=== PATIENT | male | born 1940 | race Caucasian/White ===

== ENCOUNTER 2016-11-27 08:17 | Emergency (ER) | payer MEDICARE ==
--- NOTE | 2016-11-27 08:38 | Emergency Department Record ---
History of Present Illness - General Chief Complaint: Palpitations Stated Complaint: MUSCLE SPASMS IN CHEST Time Seen by Provider: 11/27/16 08:32 Source: Patient Mode of Arrival: Ambulatory Limitations: No limitations - History of Present Illness Initial Comments: 76 yo male presents to ED for evaluation of intermittent cramps to the left chest that began yesterday while at rest. Patient reports that activity does not worsen his symptoms. Patient denies previous heart problems, and reports recent stress test 2 years ago. Patient denies pain with deep breathing, denies fevers, chills, or cough symptoms. Patient denies calf pain or swelling. Patient is pain-free currently. Onset/Timin -: Days(s) Context: Occurred during rest Associated Symptoms: Denies other symptoms, Chest pain - Related Data Home Medications Medication Instructions Recorded Confirmed Last Taken Ferrous Gluconate [Iron] 240 mg PO DAILY 02/03/14 11/27/16 Unknown Niacin [Niacin ER] 750 mg PO DAILY 02/03/14 11/27/16 Unknown Omeprazole [Prilosec] 20 mg PO DAILY 02/03/14 11/27/16 Unknown Ubidecarenone [Coq-10] 100 mg PO DAILY 02/03/14 11/27/16 Unknown Acetaminophen [Tylenol 325Mg] 650 mg PO ASDIR 11/27/16 11/27/16 Unknown Aspirin 325 mg PO DAILY 11/27/16 11/27/16 11/27/16 Celecoxib [Celebrex] 200 mg PO DAILY 11/27/16 11/27/16 Unknown Cholecalciferol (Vitamin D3) 2,000 unit PO DAILY 11/27/16 11/27/16 Unknown [Vitamin D3] Metoprolol Tartrate [Metoprolol 25 mg PO DAILY 11/27/16 11/27/16 Unknown Tartrate] Multivitamin [Multi-Vitamin Daily] 1 each PO DAILY 11/27/16 11/27/16 Unknown Tamsulosin HCl [Flomax] 0.4 mg PO DAILY 11/27/16 11/27/16 Unknown Previous Rx's Medication Instructions Recorded Diazepam [Valium] 5 mg PO Q8H PRN #10 tab 11/27/16 Allergies Allergy/AdvReac Type Severity Reaction Status Date / Time No Known Drug Allergies Allergy Unknown Verified 11/27/16 08:24 [NO KNOWN DRUG ALLERGIES] Travel Screening - Travel/Exposure Within Last 30 Days Have you traveled within the last 30 days?: No Review of Systems Constitutional: Denies: Chills, Fever, Malaise, Night sweats Eyes: Denies: Eye discharge, Eye pain ENT: Denies: Congestion, Ear pain, Epistaxis Respiratory: Denies: Cough, Dyspnea Cardiovascular: Reports: Chest pain. Denies: Dyspnea on exertion Endocrine: Denies: Fatigue, Heat or cold intolerance Gastrointestinal: Denies: Abdominal pain, Nausea, Vomiting Musculoskeletal: Denies: Arthralgia, Back pain, Gout, Joint swelling Skin: Denies: Bruising Neurological: Denies: Abnormal gait, Confusion, Headache Psychiatric: Denies: Anxiety Hematological/Lymphatic: Denies: Anemia, Blood Clots Past Medical History - SOCIAL HISTORY Smoking Status: Never smoker Alcohol Use: Rare Drug Use: None - RESPIRATORY Hx Respiratory Disorders: No - CARDIOVASCULAR Hx Cardio Disorders: Yes Hx Hypertension: Yes Comment:: enlarged aorta - NEURO Hx Neuro Disorders: No - GI Hx GI Disorders: Yes Hx Abdominal Pain: Yes Hx Reflux: Yes Hx of Polyps: Yes - Hx Genitourinary Disorders: Yes Hx Kidney Stones: Yes Hx Prostate Problems: Yes - ENDOCRINE Hx Endocrine Disorders: No - MUSCULOSKELETAL Hx Musculoskeletal Disorders: Yes Hx Arthritis: Yes - PSYCH Hx Psych Problems: No - HEMATOLOGY/ONCOLOGY Hx Hematology/Oncology Disorders: Yes Hx Blood Disorders: Yes Family Medical History Any Significant Family History?: Yes Hx Cancer: Father, Mother Physical Exam - General General Appearance: Alert, Oriented x3, Cooperative Limitations: No limitations - Head Head exam: Atraumatic, Normocephalic, Normal inspection Head exam detail: negative: Abrasion, Contusion, Holman's sign, General tenderness, Hematoma, Laceration - Eye Eye exam: Normal appearance. negative: Conjunctival injection, Periorbital swelling, Periorbital tenderness, Scleral icterus - ENT Ear exam: negative: Auricular hematoma, Auricular trauma Nasal Exam: negative: Active bleeding, Discharge, Dried blood, Foreign body Mouth exam: negative: Drooling, Laceration, Tongue elevation - Neck Neck exam: Normal inspection. negative: Meningismus, Tenderness - Respiratory Respiratory exam: Normal lung sounds bilaterally. negative: Respiratory distress, Rhonchi, Stridor, Wheezes - Cardiovascular Cardiovascular Exam: Normal rhythm, Normal heart sounds, Bradycardia - GI/Abdominal GI/Abdominal exam: Soft. negative: Rebound, Rigid, Tenderness - Rectal Rectal exam: Deferred - exam: Deferred - Extremities Extremities exam: Normal inspection. negative: Calf tenderness, Pedal edema, Tenderness - Back Back exam: Denies: CVA tenderness (R), CVA tenderness (L) - Neurological Neurological exam: Alert, Normal gait, Oriented X3 - Psychiatric Psychiatric exam: Normal affect, Normal mood - Skin Skin exam: Normal color. negative: Abrasion Type of lesion: negative: abrasion Course Vital Signs 11/27/16 08:20 Pulse Rate 51 L Respiratory 18 Rate Blood Pressure 153/93 Pulse Ox 97 - Reevaluation(s) Reevaluation #1: 11/27/16 08:32 EKG: Sinus Bradycardia 50 Normal [place], IVCD T wave inversions III Reevaluation #2: 11/27/16 08:40 Negative exercise stress test to 11 mets 01/14/15 Reevaluation #3: 11/27/16 09:28 Labs reviewed and are grossly unremarkable for an acute process. CXR: No acute process Patient was updated on all results, reports (1) episode of pain symptoms while in radiology lasting approximately 5 seconds. Will consult with [facility] provider and obtain 2nd set in 3 hours. Reevaluation #4: 11/27/16 09:46 Case was discussed with Dr. Wilhelm, agrees with plan for second Troponin and outpatient stress testing tomorrow in the [facility]. Reevaluation #5: 11/27/16 13:11 Repeat Troponin is negative for myocardial damage, and the patient appears stable for discharge at this time with instructions to return for stress testing tomorrow morning. Medical Decision Making - Lab Data Result diagrams: 11/27/16 08:40 11/27/16 08:40 Disposition Disposition: Discharge Clinical Impression: Atypical chest pain Disposition: Home, Self-Care Condition: (2) Stable Instructions: Chest Pain (ED) Additional Instructions: Return to ED if your symptoms worsen or if you have any concerns. Return tomorrow for cardiac stress testing tomorrow as directed. Prescriptions: Diazepam [Valium] 5 mg PO Q8H PRN #10 tab PRN Reason: Pain - Moderate (5-7) Forms: Patient Portal Access Time of Disposition: 13:12
[2016-11-27] MEDS ORDERED: ASPIRIN 81 MG CHEWABLE TABLET PO ONE (08:41)
[2016-11-27 09:00] LABS: BASO % 0.3 % (0-6); EOS % 2.3 % (0-6); GRAN % 69.3 % (47-80); HEMATOCRIT 41.5 % (42.0-52.0); HEMOGLOBIN 13.9 gm/dl (14.0-18.0); LYMPH % 18.6 % (16-45); MEAN CORPUSCULAR HGB CONC 33.5 g/dl (32-36); MONO % 9.5 % (0-9); PLATELET COUNT 270 K/uL (130-400); RED BLOOD COUNT 4.56 M/uL (4.40-5.70); RED CELL DISTRIBUTION WIDTH 15.7 % (11.5-14.5); WHITE BLOOD COUNT W/O DIFF 6.5 K/uL (4.2-12.2)
[2016-11-27 09:01] LABS: MEAN CORPUSCULAR HEMOGLOBIN 30.4 pg (27-33)
[2016-11-27 09:07] LABS: ALB/GLOB RATIO 1.4 (1.1-1.8); ALBUMIN 3.7 gm/dL (3.5-5.0); ALKALINE PHOSPHATASE 71 U/L (38-126); ALT/SGPT 23 U/L (21-72); ANION GAP 6.5 (7-16); AST/SGOT 22 U/L (17-59); BILIRUBIN,TOTAL 0.66 mg/dL (0.2-1.3); BLOOD UREA NITROGEN 10 mg/dL (9-20); CARBON DIOXIDE 29.5 mmol/L (22-30); CREATINE PHOSPHOKINASE 43 U/L (55-170); CREATININE 0.8 mg/dL (0.66-1.25); EST GLOMERULAR FILTRATION RATE > 60 ml/min; GLUCOSE,RANDOM 97 mg/dL (70-110); TOTAL PROTEIN 6.3 gm/dL (6.3-8.2)
[2016-11-27 09:21] LABS: CKMB 1.2 ug/L (0-6); TROPONIN I < 0.012 ng/mL (0.00-0.034)
[2016-11-27] MEDS ORDERED: DIAZEPAM 5 MG TABLET PO ONE (09:49)
--- NOTE | 2016-11-27 15:33 | RADIOLOGY REPORT ---
EXAM: CHEST 2 VIEWS HISTORY: CHEST PAIN FOR TWO DAYS. TECHNIQUE: Upright PA and lateral views of the chest. COMPARISON: Two-view chest radiographic examination dated 02/24/2013. FINDINGS: The heart is not enlarged and the pulmonary vasculature is nondilated. The lungs and pleural spaces remain clear. The thoracic aorta is tortuous and atherosclerotic. On a prior CTA examination, the ascending thoracic aorta is noted to be mildly ectatic. IMPRESSION: NO EVIDENCE OF ACUTE CARDIOPULMONARY DISEASE. TORTUOUS ATHEROSCLEROTIC THORACIC AORTA. ON A PRIOR CTA EXAMINATION OF THE CHEST, ECTASIA OF THE ASCENDING THORACIC AORTA IS NOTED. JOB NUMBER: [id number] MTDD
== END 2016-11-27 13:30 | disposition home or self-care (01) ==
LOC: ER 08:17
DX: R07.89 Other chest pain (principal); I10 Essential (primary) hypertension
CPT/HCPCS: 99284 ×2; 82550; 85025; 82553; 84484; 80053; 71020; 93005; 93010; J3490

== ENCOUNTER 2017-03-09 02:08 | Observation (INO) | payer MEDICARE ==
[2017-03-09] MEDS ORDERED: ACETAMINOPHEN 500 MG TABLET PO ONE (02:16)
[2017-03-09] MEDS ORDERED: ONDANSETRON HCL IV 4 MG/2 ML VIAL IVP ONE (02:23)
--- NOTE | 2017-03-09 02:27 | Emergency Department Record ---
History of Present Illness - General Chief complaint: Vomiting Stated complaint: FEVER Time Seen by Provider: 03/09/17 02:10 Source: Patient Mode of Arrival: Ambulatory Limitations: No limitations - History of Present Illness Initial comments: 76 yo male presents to ED for evaluation of fever and vomiting symptoms for the past 24 hours intermittently. Patient reports that his symptoms began 12 hours after receiving the influenza vaccine. Patient reports body aches and loose stools, denies abdominal pain, cough, or urinary symptoms. Patient denies any recent rashes. Patient reports attempting to take Tylenol earlier tonight however it "came back up on him". MD complaint: Nausea, Vomiting, Other (fever) Onset/Timin -: Days(s) Associated Abdominal Pain: No Severity: Moderate Associated Symptoms: Fever/chills - Related Data Allergies Allergy/AdvReac Type Severity Reaction Status Date / Time No Known Drug Allergies Allergy Unknown Verified 11/27/16 08:24 [NO KNOWN DRUG ALLERGIES] Travel Screening - Travel/Exposure Within Last 30 Days Have you traveled within the last 30 days?: No - Travel Symptoms Symptom Screening: None Review of Systems Constitutional: Reports: Chills, Fever, Malaise. Denies: Night sweats Eyes: Denies: Eye discharge, Eye pain ENT: Denies: Congestion, Ear pain, Epistaxis Respiratory: Denies: Cough, Dyspnea Cardiovascular: Denies: Chest pain, Dyspnea on exertion Endocrine: Denies: Fatigue, Heat or cold intolerance Gastrointestinal: Reports: Diarrhea, Nausea, Vomiting. Denies: Abdominal pain, Constipation Genitourinary: Denies: Incontinence, Retention Musculoskeletal: Reports: Myalgia. Denies: Arthralgia, Back pain, Gout, Joint swelling Skin: Denies: Bruising, Change in color Neurological: Denies: Abnormal gait, Confusion, Headache, Seizure Psychiatric: Denies: Anxiety Hematological/Lymphatic: Denies: Anemia, Blood Clots Past Medical History - SOCIAL HISTORY Smoking Status: Never smoker - RESPIRATORY Hx Respiratory Disorders: No - CARDIOVASCULAR Hx Cardio Disorders: Yes Hx Hypertension: Yes Comment:: enlarged aorta - NEURO Hx Neuro Disorders: No - GI Hx GI Disorders: Yes Hx Abdominal Pain: Yes Hx Reflux: Yes Hx of Polyps: Yes - Hx Genitourinary Disorders: Yes Hx Kidney Stones: Yes Hx Prostate Problems: Yes - ENDOCRINE Hx Endocrine Disorders: No - MUSCULOSKELETAL Hx Musculoskeletal Disorders: Yes Hx Arthritis: Yes - PSYCH Hx Psych Problems: No - HEMATOLOGY/ONCOLOGY Hx Hematology/Oncology Disorders: Yes Hx Blood Disorders: Yes Family Medical History Any Significant Family History?: Yes Hx Cancer: Father, Mother Physical Exam - General General Appearance: Alert, Oriented x3, Cooperative, Mild distress Limitations: No limitations - Head Head exam: Atraumatic, Normocephalic, Normal inspection Head exam detail: negative: Abrasion, Contusion, Holman's sign, General tenderness, Hematoma, Laceration - Eye Eye exam: Normal appearance. negative: Conjunctival injection, Periorbital swelling, Periorbital tenderness, Scleral icterus - ENT Ear exam: negative: Auricular hematoma, Auricular trauma Nasal Exam: negative: Active bleeding, Discharge, Dried blood, Foreign body Mouth exam: negative: Drooling, Laceration, Muffled voice, Tongue elevation - Neck Neck exam: Normal inspection. negative: Meningismus, Tenderness - Respiratory Respiratory exam: Normal lung sounds bilaterally. negative: Rales, Respiratory distress, Rhonchi, Stridor - Cardiovascular Cardiovascular Exam: Regular rate, Normal rhythm, Normal heart sounds - GI/Abdominal GI/Abdominal exam: Soft, Other (benign abdominal examination). negative: Rebound, Rigid, Tenderness - Rectal Rectal exam: Deferred - exam: Deferred - Extremities Extremities exam: Other (Erythema/STS extending from the right elbow proximally) . negative: Calf tenderness, Pedal edema, Tenderness - Back Back exam: Denies: CVA tenderness (R), CVA tenderness (L) - Neurological Neurological exam: Alert, Normal gait, Oriented X3 - Psychiatric Psychiatric exam: Normal affect, Normal mood - Skin Skin exam: Erythema. negative: Abrasion Type of lesion: negative: abrasion Distribution of rash: RUE Description of rash: Erythematous, Macular Course - Reevaluation(s) Reevaluation #1: 03/09/17 03:08 Labs reviewed, WBC 15.9 with 88% neutrophils. Labs are otherwise grossly unremarkable for an acute process. UA and CXR are pending. Reevaluation #2: 03/09/17 03:25 UA negative for infection. CXR: No acute process Symptoms appear c/w cellulitis of the RUE, Clindamycin initiated in the ED. Will admit for further evaluation and treatment. Patient and his SO agree with plan as discussed. Medical Decision Making - Lab Data Result diagrams: 03/09/17 02:30 10/07/17 02:30 Disposition Disposition: Admit Clinical Impression: Cellulitis Qualifiers: Site of cellulitis: extremity Site of cellulitis of extremity: upper extremity Laterality: right Qualified Code(s): L03.113 - Cellulitis of right upper limb Fever Qualifiers: Fever type: unspecified Qualified Code(s): R50.9 - Fever, unspecified Disposition: Still a Patient at [facility] Decision to Admit: Admit from ER Decision to Admit Date: 03/09/17 Decision to Admit Time: : Condition: (2) Stable Forms: Patient Portal Access Time of Disposition: : Quality - Quality Measures Quality Measures: N/A - Blood Pressure Screening Does Patient Have Any of the Following: No Blood Pressure Classification: Pre-Hypertensive BP Reading Systolic Measurement: 123 Diastolic Measurement: 72 Screening for High Blood Pressure: < Pre-Hypertensive BP, F/U Documented > [ [id number]] Pre-Hypertensive Follow-up Interventions: Referral to alternative/primary care provider.
[2017-03-09] MEDS ORDERED: 0.9 % SODIUM CHLORIDE 1000ML 1,000 ML IV SCH (02:30)
[2017-03-09 02:39] LABS: BASO % 0.1 % (0-6); EOS % 0.1 % (0-6); HEMATOCRIT 42.5 % (42.0-52.0); HEMOGLOBIN 14.5 gm/dl (14.0-18.0); MEAN CELL VOLUME 88.7 fl (81-97); MEAN CORPUSCULAR HEMOGLOBIN 30.3 pg (27-33); MEAN CORPUSCULAR HGB CONC 34.1 g/dl (32-36); MEAN PLATELET VOLUME 9.2 fl (7.4-10.4); PLATELET COUNT 219 K/uL (130-400); RED BLOOD COUNT 4.79 M/uL (4.40-5.70); WHITE BLOOD COUNT W/O DIFF 15.9 K/uL (4.2-12.2)
[2017-03-09 02:56] LABS: ALB/GLOB RATIO 1.3 (1.1-1.8); ALBUMIN 3.8 g/dL (4.0-5.0); ALKALINE PHOSPHATASE 77 U/L (40-129); ALT/SGPT 13 U/L (<41); AST/SGOT 18 U/L (10.0-50.0); BLOOD UREA NITROGEN 10 mg/dL (8-23); CREATININE 0.8 mg/dL (0.7-1.2); EST GLOMERULAR FILTRATION RATE > 60 mL/min; GLUCOSE,RANDOM 164 mg/dL (74-109); INFLUENZA A NEGATIVE (NEGATIVE); INFLUENZA B NEGATIVE (NEGATIVE); TOTAL PROTEIN 6.7 g/dL (6.6-8.7)
[2017-03-09 03:05] LABS: ANISOCYTOSIS 1+; PLATELET ESTIMATE NORMAL (NORMAL)
[2017-03-09 03:19] LABS: URINE APPEARANCE CLEAR; URINE BILIRUBIN NEGATIVE (NEGATIVE); URINE BLOOD NEGATIVE (NEGATIVE); URINE COLOR YELLOW; URINE GLUCOSE (UA) NEGATIVE (NEGATIVE); URINE KETONE 15 mg/dL (NEGATIVE); URINE LEUKOCYTE ESTERASE NEGATIVE (NEGATIVE); URINE NITRITE NEGATIVE (NEGATIVE); URINE PROTEIN NEGATIVE (NEGATIVE); URINE UROBILINOGEN 0.2 E.U./dL (0.20 - 1.00)
[2017-03-09] MEDS ORDERED: CLINDAMYCIN 600MG/50ML PREMIX 600 MG/50 ML BAG IVPB ONE (03:32)
[2017-03-09] MEDS ORDERED: ACETAMINOPHEN 500 MG TABLET PO PRN (03:51)
[2017-03-09] MEDS ORDERED: 0.9 % SODIUM CHLORIDE 1000ML 1,000 ML IV PRN (03:51)
[2017-03-09] MEDS: CLINDAMYCIN 600MG/50ML PREMIX 600 MG/50 ML BAG IVPB SCH ×2 (04:28→11:34)
[2017-03-09] MEDS ORDERED: PANTOPRAZOLE SODIUM 40 MG TABLET PO SCH (07:00)
--- NOTE | 2017-03-09 09:58 | History & Physical ---
History of Present Illness - Date of Service Date of Service for History & Physical: 03/09/17 - History of Present Illness Admitting Diagnosis: Cellulitis right upper extremity. Fever. Sepsis History of Present Illness: Mr. Sellers is a 76 y/o male who presents with feve, nausea, vomiting and loose stools starting yesterday. The patient says that he got his flu vaccine the day before and several hours later symptoms began. He tried taking Tylenol but got no relief of symptoms. On arrival to the ED the patient was noted to have swelling of the right forearm. The patient cannot recall any injury, scratches or scrapes to the area. Initial workup revealed an elevated WBC negative UA and chest xray. The patient was started on Clindamycin 600mg IV Q8H and Nacl 0.9% @ 125mL/hr. Travel Screening - Travel/Exposure Within Last 30 Days Have you traveled within the last 30 days?: No - Travel/Exposure Within Last Year Have you traveled outside the [place] in the last year?: No - Additonal Travel Details Have you been exposed to anyone with a communicable illness?: No - Travel Symptoms Symptom Screening: None Review of Systems Constitutional: Reports: Chills, Fever, Malaise. Denies: Night sweats Eyes: Denies: Eye discharge, Eye pain ENT: Denies: Congestion, Ear pain, Epistaxis Respiratory: Denies: Cough, Dyspnea Cardiovascular: Denies: Chest pain, Dyspnea on exertion Endocrine: Denies: Fatigue, Heat or cold intolerance Gastrointestinal: Reports: Diarrhea, Nausea, Vomiting. Denies: Abdominal pain, Constipation Genitourinary: Denies: Incontinence, Retention Musculoskeletal: Reports: Myalgia. Denies: Arthralgia, Back pain, Gout, Joint swelling Skin: Denies: Bruising, Change in color Neurological: Denies: Abnormal gait, Confusion, Headache, Seizure Psychiatric: Denies: Anxiety Hematological/Lymphatic: Reports: Other (history of thrombocytosis ). Denies: Anemia, Blood Clots Past Medical History - SOCIAL HISTORY Smoking Status: Never smoker Alcohol Use: Occasional Drug Use: None - RESPIRATORY Hx Respiratory Disorders: No - CARDIOVASCULAR Hx Cardio Disorders: Yes Hx Hypertension: Yes Comment:: enlarged aorta - NEURO Hx Neuro Disorders: No - GI Hx GI Disorders: Yes Hx Abdominal Pain: Yes Hx Reflux: Yes Hx of Polyps: Yes - Hx Genitourinary Disorders: Yes Hx Kidney Stones: Yes Hx Prostate Problems: Yes - ENDOCRINE Hx Endocrine Disorders: No - MUSCULOSKELETAL Hx Musculoskeletal Disorders: Yes Hx Arthritis: Yes - PSYCH Hx Psych Problems: No - HEMATOLOGY/ONCOLOGY Hx Hematology/Oncology Disorders: Yes Hx Blood Disorders: Yes Family Medical History Any Significant Family History?: Yes Hx Cancer: Father, Mother H&P Meds/Allergies - Allergies Allergies: Allergies Allergy/AdvReac Type Severity Reaction Status Date / Time No Known Drug Allergies Allergy Unknown Verified 11/27/16 08:24 [NO KNOWN DRUG ALLERGIES] - Active Medications Active Medications: Current Medications Acetaminophen (Tylenol 500mg Tab) 1,000 mg PO Q6H PRN PRN Reason: PAIN/TEMP Last Admin: 03/09/17 09:32 Dose: 1,000 mg Aspirin (Aspirin, Regular) 325 mg PO DAILY ON LICENSE OF [facility] Last Admin: 03/09/17 09:32 Dose: 325 mg Celecoxib (Celebrex) 200 mg PO BID ON LICENSE OF [facility] Last Admin: 03/09/17 09:32 Dose: 200 mg Ferrous Sulfate (Iron) 325 mg PO DAILY ON LICENSE OF [facility] Last Admin: 03/09/17 09:32 Dose: 325 mg Sodium Chloride () 1,000 mls @ 125 mls/hr IV .Q8H PRN PRN Reason: LARGE VOLUME IV Last Admin: 03/09/17 04:35 Dose: 125 mls/hr Clindamycin Phosphate (Cleocin 600 [id number]) 600 mg in 50 mls @ 100 mls/ hr IVPB Q8H ON LICENSE OF [facility] Last Admin: 03/09/17 04:28 Dose: Not Given Metoprolol Tartrate (Lopressor) 25 mg PO BID ON LICENSE OF [facility] Last Admin: 03/09/17 09:33 Dose: 25 mg Non-Formulary Medication (Niacin [Niacin Er]) 750 mg PO DAILY ON LICENSE OF [facility] Pantoprazole Sodium (Protonix) 40 mg PO DAILYAC ON LICENSE OF [facility] Last Admin: 03/09/17 06:10 Dose: 40 mg Tamsulosin HCl (Flomax) 0.4 mg PO DAILY ON LICENSE OF [facility] Last Admin: 03/09/17 09:32 Dose: 0.4 mg Physical Exam - Vital Signs Vital Signs: Vital Signs - Last 24 Hrs Temp Pulse Resp BP Pulse Ox 03/09/17 08:24 20 03/09/17 04:16 63 18 03/09/17 03:51 99.3 F 63 18 121/71 94 L 03/09/17 03:50 99.8 F H - General General Appearance: Alert, Oriented x3, Cooperative, Mild distress Limitations: No limitations - Head Head exam: Atraumatic, Normocephalic, Normal inspection Head exam detail: negative: Abrasion, Contusion, Holman's sign, General tenderness, Hematoma, Laceration - Eye Eye exam: Normal appearance. negative: Conjunctival injection, Periorbital swelling, Periorbital tenderness, Scleral icterus - ENT Ear exam: negative: Auricular hematoma, Auricular trauma Nasal Exam: negative: Active bleeding, Discharge, Dried blood, Foreign body Mouth exam: negative: Drooling, Laceration, Muffled voice, Tongue elevation - Neck Neck exam: Normal inspection. negative: Meningismus, Tenderness - Respiratory Respiratory exam: Normal lung sounds bilaterally. negative: Rales, Respiratory distress, Rhonchi, Stridor - Cardiovascular Cardiovascular Exam: Regular rate, Normal rhythm, Normal heart sounds, Systolic murmur (aortic post - slerotic w/o radiation to carotid) - GI/Abdominal GI/Abdominal exam: Soft, Other (benign abdominal examination). negative: Rebound, Rigid, Tenderness - Rectal Rectal exam: Deferred - exam: Deferred - Extremities Extremities exam: Other (Erythema/STS extending from the right elbow proximally) . negative: Calf tenderness, Pedal edema, Tenderness - Back Back exam: Denies: CVA tenderness (R), CVA tenderness (L) - Neurological Neurological exam: Alert, Normal gait, Oriented X3 - Psychiatric Psychiatric exam: Normal affect, Normal mood - Skin Skin exam: Erythema. negative: Abrasion Type of lesion: negative: abrasion Distribution of rash: RUE Description of rash: Erythematous, Macular Results - Labs Result Diagrams: 03/09/17 02:30 03/09/17 02:30 VTE H&P Assessment - Risk for VTE Risk for VTE: Yes Risk Level: Low Risk Assessment Date: 03/09/17 Risk Assessment Time: 10:30 VTE Orders Placed or Will Be Placed: No VTE Reason for No Prophylaxis: Not Indicated (patient is ambulatory ) Plan - Inpatient Certification Inpatient Certification: Admit to inpatient care: Based on my medical assessment, after consideration of patient's risk factors (age, co-morbidities and patient presenting symptoms and acuity), I expect that this patient will remain in the hospital greater than or equal to two midnights and that the services needed warrant inpatient care because: Estimated length of stay: 24 hours The patient may reasonably be expected to be discharged or transferred to a hospital within 96 hours after admission to [facility]. I certify that my determination is in accordance with my understanding of Medicare requirements for reasonable and necessary inpatient services. - Detailed Diagnosis and Plan (1) Cellulitis of arm, right Plan: - patient has non-purulent cellulitis of the RUE. - WBC 15.8, 06/06 SIRS met. UA negative, influenza A/B rapid negative, BCX pending - patient started on Clindamycin 600mg IV Q8H --> w/ change to PO on discharge , IV fluids @ 125mL/hr - Tylenol 500mg Q6H PRN for pain, avoidance of IV lines blood draws from the right arm. Current Visit: Yes Status: Acute Base Code: L03.113 - CELLULITIS OF RIGHT UPPER LIMB (2) Hypertension Plan: - BP 121/71 this morning. - pt Om Lopressor 25mg BID, hold for SBP< 110. Current Visit: Yes Status: Acute Base Code: I10 - ESSENTIAL (PRIMARY) HYPERTENSION (3) Erythrocytosis Plan: - with q6 weeks phlebotomy. Most recent blood draw was 2 weeks ago. Current Visit: Yes Status: Acute Base Code: D75.1 - SECONDARY POLYCYTHEMIA (4) Chronic osteoarthritis Plan: - patient has bilateral shoulder pains and is on Celebrex 200mg BID Current Visit: Yes Status: Acute Base Code: M19.90 - UNSPECIFIED OSTEOARTHRITIS, UNSPECIFIED SITE (5) Full code status Current Visit: Yes Status: Acute Base Code: Z78.9 - OTHER SPECIFIED HEALTH STATUS - Disposition Patient likely to be dc/d this afternoon after getting second dose of Clindamycin IV. We will change to PO medications for another 7 days. The patient and his have indicated that they are to fly to [place] in the morning and drive back over the next few days. I have indicated my concern and advised that if the patient is not up to it he should postpone his travel plans until he feels better.
[2017-03-09] MEDS ORDERED: NIACIN 750 MG PO SCH (10:00)
[2017-03-09] MEDS ORDERED: FERROUS SULFATE 325 MG TAB PO SCH (10:00)
[2017-03-09] MEDS ORDERED: TAMSULOSIN HCL 0.4 MG CAP.ER.24H PO SCH (10:00)
[2017-03-09] MEDS ORDERED: METOPROLOL TART 25 MG TABLET PO SCH (10:00)
[2017-03-09] MEDS ORDERED: CELECOXIB 100 MG CAPSULE PO SCH (10:00)
[2017-03-09] MEDS ORDERED: ASPIRIN 325 MG TABLET PO SCH (10:00)
--- NOTE | 2017-03-09 10:57 | Discharge Summary ---
Providers Discharge Summary Date: 03/09/17 Date of admission: 03/09/17 03:44 Attending physician: KEYONA CONDE Physical Exam - Vital Signs Vital Signs: Vital Signs - Last 24 Hrs Temp Pulse Resp BP Pulse Ox 03/09/17 10:44 98.9 F 62 128/71 94 L 03/09/17 09:30 99.5 F 03/09/17 08:24 20 03/09/17 04:16 63 18 03/09/17 03:51 99.3 F 63 18 121/71 94 L 03/09/17 03:50 99.8 F H - General General Appearance: Alert, Oriented x3, Cooperative, Mild distress Limitations: No limitations - Head Head exam: Atraumatic, Normocephalic, Normal inspection Head exam detail: negative: Abrasion, Contusion, Holman's sign, General tenderness, Hematoma, Laceration - Eye Eye exam: Normal appearance. negative: Conjunctival injection, Periorbital swelling, Periorbital tenderness, Scleral icterus - ENT Ear exam: negative: Auricular hematoma, Auricular trauma Nasal Exam: negative: Active bleeding, Discharge, Dried blood, Foreign body Mouth exam: negative: Drooling, Laceration, Muffled voice, Tongue elevation - Neck Neck exam: Normal inspection. negative: Meningismus, Tenderness - Respiratory Respiratory exam: Normal lung sounds bilaterally. negative: Rales, Respiratory distress, Rhonchi, Stridor - Cardiovascular Cardiovascular Exam: Regular rate, Normal rhythm, Normal heart sounds, Systolic murmur (aortic post - slerotic w/o radiation to carotid) - GI/Abdominal GI/Abdominal exam: Soft, Other (benign abdominal examination). negative: Rebound, Rigid, Tenderness - Rectal Rectal exam: Deferred - exam: Deferred - Extremities Extremities exam: Other (Erythema/STS extending from the right elbow proximally) . negative: Calf tenderness, Pedal edema, Tenderness - Back Back exam: Denies: CVA tenderness (R), CVA tenderness (L) - Neurological Neurological exam: Alert, Normal gait, Oriented X3 - Psychiatric Psychiatric exam: Normal affect, Normal mood - Skin Skin exam: Erythema. negative: Abrasion Type of lesion: negative: abrasion Distribution of rash: RUE Description of rash: Erythematous, Macular Hospitalization - Hospitalization Admission Diagnosis: Cellulitis right upper extremity. Fever. Sepsis - Problem List/Discharge Diagnosis (1) Cellulitis of arm, right Plan: - patient has non-purulent cellulitis of the RUE. - WBC 15.8, 1/4 SIRS met. UA negative, influenza A/B rapid negative, BCX pending - patient started on Clindamycin 600mg IV Q8H --> w/ change to PO on discharge , IV fluids @ 125mL/hr - Tylenol 500mg Q6H PRN for pain, avoidance of IV lines blood draws from the right arm. Current Visit: Yes Status: Acute Base Code: L03.113 - CELLULITIS OF RIGHT UPPER LIMB (2) Hypertension Plan: - BP 121/71 this morning. - pt Om Lopressor 25mg BID, hold for SBP< 110. Current Visit: Yes Status: Acute Base Code: I10 - ESSENTIAL (PRIMARY) HYPERTENSION (3) Erythrocytosis Plan: - with q6 weeks phlebotomy. Most recent blood draw was 2 weeks ago. Current Visit: Yes Status: Acute Base Code: D75.1 - SECONDARY POLYCYTHEMIA (4) Chronic osteoarthritis Plan: - patient has bilateral shoulder pains and is on Celebrex 200mg BID Current Visit: Yes Status: Acute Base Code: M19.90 - UNSPECIFIED OSTEOARTHRITIS, UNSPECIFIED SITE (5) Full code status Current Visit: Yes Status: Acute Base Code: Z78.9 - OTHER SPECIFIED HEALTH STATUS - Disposition Patient likely to be dc/d this afternoon after getting second dose of Clindamycin IV. We will change to PO medications for another 7 days. The patient and his have indicated that they are to fly to [place] in the morning and drive back over the next few days. I have indicated my concern and advised that if the patient is not up to it he should postpone his travel plans until he feels better. - Hospitalization Course Disposition: Home, Self-Care Hospital Course: As per H&P. Pt to be dc/d this afternoon. Condition at Discharge: (2) Stable Discharge Medications - Discharge Medications Prescriptions: Clindamycin HCl 300 mg PO Q8H #15 capsule Home Medications: Ambulatory Orders Ferrous Gluconate [Iron] 240 mg PO DAILY 02/03/14 [Last Taken Unknown] Niacin [Niacin ER] 750 mg PO DAILY 02/03/14 [Last Taken Unknown] Omeprazole [Prilosec] 20 mg PO DAILY 09/03/14 [Last Taken Unknown] Ubidecarenone [Coq-10] 100 mg PO DAILY 02/03/14 [Last Taken Unknown] Acetaminophen [Tylenol 325Mg] 650 mg PO ASDIR 11/27/16 [Last Taken Unknown] Aspirin 325 mg PO DAILY 11/27/16 [Last Taken 11/27/16] Celecoxib [Celebrex] 200 mg PO BID 11/27/16 [Last Taken Unknown] Cholecalciferol (Vitamin D3) [Vitamin D3] 2,000 unit PO DAILY 11/27/16 [Last Taken Unknown] Metoprolol Tartrate 25 mg PO BID 11/27/16 [Last Taken Unknown] Multivitamin [Multi-Vitamin Daily] 1 each PO DAILY 11/27/16 [Last Taken Unknown] Tamsulosin HCl [Flomax] 0.4 mg PO DAILY 11/27/16 [Last Taken Unknown] Clindamycin HCl 300 mg PO Q8H #15 capsule 03/09/17 [Last Taken Unknown] Discharge Plan - Discharge Instructions Activity at Discharge: Resume Usual Activities As Tolerated Diet at Discharge: Regular Diet Instructions: Cellulitis (DC) Additional Instructions: Keep area clean and dry. Watch for signs of increasing infection-more red, streaking, increased pain, purulent drainage, fever. See your doctor or return to the ED. take antibiotics as prescribed until gone. Diet and activities as tolerated. Resume home meds Quality Measures - Quality Measures Quality Measures: Advance Directives, Documentation of Current Medications in Medical Record, Elder Maltreatment Screen and Follow-Up Plan, Screening for High Blood Pressure and F/U Documented - Current Medications Quality Measure: Measure #130: Documentation of Current Medications Documentation of Current Medications: <Current Medications Documented/Reviewed> [G3572] - Blood Pressure Screening Quality Measure: Screening for High Blood Pressure and Follow-Up Documented Does Patient Have Any of the Following: Active Dx of HTN Blood Pressure Classification: Pre-Hypertensive BP Reading Systolic Measurement: 128 Diastolic Measurement: 71 Screening for High Blood Pressure: Patient Exclusion, Hx of HTN [G9744] - Advance Directives Quality Measure: Measure #47: Care Plan Advance Directives Established: Yes Advance Directives Information Provided To Patient: No Advance Directives on File: No Living Will: Yes Power of Wet Roller: Yes Advance Care Planning: <Care Plan/Decision Maker Not Decided; Discussed & Documented> [1122F] - Elder Abuse Suspicion Index Screening: Elder Abuse Suspicion Index Screening Rely on people for bathing, dressing, shopping, banking, etc: No Prevented from getting food, clothes, medication, etc: No Made to feel shamed or threatened by someone: No Forced to sign papers or use money against will: No Feel afraid, touched in ways not wanted or hurt physically: No Poor eye contact, withdrawn, malnourished, cuts or bruises: No Screening Result: Negative result EASI Reference Information: Tunde QUIROGA, Ar C, Adelaida Bethea, Brien Perez.Development and validation of a tool to assist physicians identification of elder abuse: The Elder Abuse Suspicion Index (EASI ). Journal of Elder Abuse and Neglect, 2008; 20 (3): 276-300. - Elder Maltreatment Screen Quality Measures: Elder Maltreatment Screen and Follow-Up Plan Elder Maltreatment Screen: <Negative, No Follow-Up Plan Required> [G8734]
--- NOTE | 2017-03-11 07:44 | RADIOLOGY REPORT ---
EXAM: CHEST, TWO VIEWS HISTORY: FEVER. TECHNIQUE: PA and lateral upright views of the chest were obtained. Comparison: 11/27/16. FINDINGS: The heart is normal in size. The aorta is atherosclerotic and tortuous. The mediastinum and pulmonary vasculature are otherwise normal. The lungs are clear. There is no pneumothorax or effusion. The bones appear intact. IMPRESSION: STABLE CHEST WITH NO ACUTE PROCESS IDENTIFIED. JOB NUMBER: [id number] MTDD
== END 2017-03-09 12:40 | disposition home or self-care (01) ==
LOC: ER 02:08 → MEDSURG 03:44 → INTOOBSV 03:44
PROVIDERS: ADMIT Internal Medicine; ATTEND Internal Medicine
DX: L03.113 Cellulitis of right upper limb (principal); I10 Essential (primary) hypertension; D75.1 Secondary polycythemia; M19.90 Unspecified osteoarthritis, unspecified site
CPT/HCPCS: 71020; 80053; 81003; 83605; 85027; 87400; 96367; 96374; 99236; 99285; J2405; J7030

== ENCOUNTER 2018-12-17 14:40 | Emergency (ER) | payer MEDICARE ==
--- NOTE | 2018-12-17 15:19 | Emergency Department Record ---
History of Present Illness - General Chief Complaint: Chest Pain Stated Complaint: CHEST PRESSURE Time Seen by Provider: 12/17/18 14:59 Source: Patient Mode of Arrival: Ambulatory Limitations: No limitations - History of Present Illness Initial Comments: The patient is here due to a 10 day hx of chest pressure. The pressure seems to be worse in the morning. He denies any SOB, RAZIA, sweating or nausea with it but states it is much better with deep breaths. The patient states the pressure was slightly worse this AM so he decided to come to the ER. The patient did have a Nuclear EST in Mar of last year and it demonstrated a mod sized reversible inferior wall defect but with no EKG changes. The patient also has a hx of an Aortic Aneurysm and is followed by a Surgeon at [facility]. MD Complaint: Chest pain Onset/Timin -: Days(s) Onset: During rest Pain Location: Substernal Pain Radiation: None Quality: Heaviness, Other Consistency: Constant Improves With: Nothing Worsens With: Nothing Treatments Prior to Arrival: None - Related Data Allergies Allergy/AdvReac Type Severity Reaction Status Date / Time No Known Drug Allergies Allergy Unknown Verified 11/27/16 08:24 [NO KNOWN DRUG ALLERGIES] Travel Screening - Travel/Exposure Within Last 30 Days Have you traveled within the last 30 days?: No Review of Systems Constitutional: Denies: Chills, Fever Eyes: Denies: Eye discharge ENT: Denies: Congestion Respiratory: Denies: Cough Cardiovascular: Denies: Arrhythmia Endocrine: Reports: Fatigue Gastrointestinal: Denies: Nausea Genitourinary: Denies: Dysuria Musculoskeletal: Denies: Arthralgia Neurological: Denies: Abnormal gait Past Medical History - SOCIAL HISTORY Smoking Status: Never smoker - RESPIRATORY Hx Respiratory Disorders: No - CARDIOVASCULAR Hx Cardio Disorders: Yes Hx Hypertension: Yes Comment:: enlarged aorta - NEURO Hx Neuro Disorders: No - GI Hx GI Disorders: Yes Hx Abdominal Pain: Yes Hx Reflux: Yes Hx of Polyps: Yes - Hx Genitourinary Disorders: Yes Hx Kidney Stones: Yes Hx Prostate Problems: Yes - ENDOCRINE Hx Endocrine Disorders: No - MUSCULOSKELETAL Hx Musculoskeletal Disorders: Yes Hx Arthritis: Yes - PSYCH Hx Psych Problems: No - HEMATOLOGY/ONCOLOGY Hx Hematology/Oncology Disorders: Yes Hx Blood Disorders: Yes Family Medical History Any Significant Family History?: Yes Hx Cancer: Father, Mother Physical Exam - General General Appearance: Alert, Oriented x3, Cooperative, No acute distress - Head Head exam: Atraumatic, Normocephalic, Normal inspection - Eye Eye exam: Normal appearance, PERRL - ENT Throat exam: Normal inspection. negative: Tonsillar erythema, Tonsillar exudate - Neck Neck exam: Normal inspection, Full ROM. negative: Tenderness - Respiratory Respiratory exam: Normal lung sounds bilaterally. negative: Respiratory distress - Cardiovascular Cardiovascular Exam: Regular rate, Normal rhythm, Normal heart sounds. negativ e: Diastolic murmur, Systolic murmur - GI/Abdominal GI/Abdominal exam: Soft, Normal bowel sounds. negative: Tenderness - Extremities Extremities exam: Normal inspection, Full ROM, Normal capillary refill. negative: Tenderness - Back Back exam: Reports: Normal inspection. Denies: Vertebral tenderness - Neurological Neurological exam: Alert, Normal gait, Oriented X3. negative: Abnormal gait, Altered, Motor sensory deficit - Psychiatric Psychiatric exam: negative: Anxious Course Vital Signs 12/17/18 14:44 Temperature 97.9 F Pulse Rate 61 Respiratory 17 Rate Blood Pressure 161/88 Pulse Ox 96 - Reevaluation(s) Reevaluation #1: The patient is doing well at this time. He denies any new symptoms and is resting comfortably. I did discuss the issues with him and due to his extensive cardiac hx I do believe he needs to see a [employer]. Since he see's the [facility] group and they are not here tomorrow I do feel he will need to be transferred there and he does agree with the plan. 12/17/18 15:56 Reevaluation #2: I did discuss the case with Dr. Cordero at [facility] who did accept the patient in transfer. I did recommend transfer by ambulance but the patient and refused. They understand the risks of driving to [facility] by car and accept the risks. 12/17/18 16:05 Medical Decision Making - Data Complexity MDM Data: Labs Ordered and/or Reviewed, X-Ray Ordered and/or Reviewed, EKG Ordered and/or Reviewed - Lab Data Result diagrams: 12/17/18 14:50 12/17/18 14:50 - EKG Data -: EKG Interpreted by Me EKG: No Acute Changes, Unchanged From Previous - Radiology Data Radiology results: Report reviewed (CXR: Neg for acute changes.) Disposition Disposition: Transfer Clinical Impression: Chest pressure Disposition: Acute Care Hospital Transfer Transfer To: [facility] Reason For Transfer: Cardiology Accepting Physician: Gil. Time Discussed w/Accepting Physician: 16:07 Condition: (2) Stable Forms: Patient Portal Access Time of Disposition: 16:07 Quality - Quality Measures Quality Measures: N/A - Blood Pressure Screening View Details: Yes Does Patient Have Any of the Following: No Blood Pressure Classification: Hypertensive Reading Systolic Measurement: 138 Diastolic Measurement: 93 Screening for High Blood Pressure: < First Hypertensive BP, F/U Documented > [G8950] First Hypertensive Follow-up Interventions: Referral to alternative/primary care provider.
[2018-12-17] MEDS: ASPIRIN 325 MG TABLET PO ONE ×2 (15:20→15:22)
[2018-12-17 15:24] LABS: ABSOLUTE NEUTROPHIL COUNT 5.65; BASO % 0.1 % (0-6); EOS % 2.6 % (0-6); GRAN % 67.5 % (47-80); HEMOGLOBIN 14.7 gm/dl (14.0-18.0); LYMPH % 20.2 % (16-45); MEAN CELL VOLUME 86.7 fl (81-97); MEAN CORPUSCULAR HEMOGLOBIN 28.3 pg (27-33); MEAN CORPUSCULAR HGB CONC 32.7 g/dl (32-36); MEAN PLATELET VOLUME 9.4 fl (7.4-10.4); MONO % 9.6 % (0-9); PLATELET COUNT 283 K/uL (130-400); RED BLOOD COUNT 5.19 M/uL (4.40-5.70); RED CELL DISTRIBUTION WIDTH 15.5 % (11.5-14.5); WHITE BLOOD COUNT W/O DIFF 8.4 K/uL (4.2-12.2)
[2018-12-17 15:33] LABS: BLOOD UREA NITROGEN 12 mg/dL (8-23); CREATININE 0.7 mg/dL (0.7-1.2); EST GLOMERULAR FILTRATION RATE > 60 mL/min
[2018-12-17 15:36] LABS: GLUCOSE,RANDOM 124 mg/dL (74-109)
[2018-12-17 15:37] LABS: PROTHROMBIN TIME (PATIENT) 10.2 SECONDS (9.5-12.1)
[2018-12-17 15:39] LABS: CREATINE PHOSPHOKINASE 39 U/L (39-308)
[2018-12-17 15:41] LABS: CKMB 1.4 ng/mL (<6.73)
--- NOTE | 2018-12-19 07:34 | RADIOLOGY REPORT ---
EXAM: AP CHEST HISTORY: CHEST PAIN, WORSE THIS MORNING. TECHNIQUE: AP upright view of the chest was obtained. Comparison: Two view chest 03/09/17. FINDINGS: The heart size is at about the upper limits of normal allowing for the current AP positioning. No definite acute infiltrate seen. Torsion of the aorta similar to before. No definite pleural effusion or pneumothorax evident. Hypertrophic spurring in the mid to lower thoracic spine. IMPRESSION: THE HEART SIZE IS AT ABOUT THE UPPER LIMITS OF NORMAL. NO DEFINITE ACUTE INFILTRATE SEEN. TORSION OF THE AORTA BEFORE. J[facility]BER: [id number] [facility]
== END 2018-12-17 16:40 | disposition short-term general hospital (02) ==
LOC: ER 14:40
DX: R07.89 Other chest pain (principal); I10 Essential (primary) hypertension
CPT/HCPCS: 71045; 80048; 82550; 82553; 84484; 85025; 85610; 85730; 93005; 93010; 99285